=== PATIENT | male | born 1990 | race Caucasian/White ===

== ENCOUNTER → 2017-04-11 | Outpatient (CLI) | payer BC ==
[2017-04-11 11:55] LABS: BASO % 0.3 % (0.0-1.0); EOS # 0.3 K/mm3 (0.0-0.50); EOS % 2.6 % (0.0-3.0); LARGE UNSTAINED CELL # 0.1 K/mm3 (0.0-0.4); LARGE UNSTAINED CELL % 0.8 % (0.0-4.0); LYMPH % 19.4 % (24.0-44.0); MEAN CORPUSCULAR HEMOGLOBIN 27.2 pg (27.0-33.0); MEAN CORPUSCULAR HGB CONC 33.6 g/dl (32.0-36.5); MEAN CORPUSCULAR VOLUME 80.9 fl (80.0-96.0); MONO # 0.5 K/mm3 (0.0-0.8); MONO % 5.6 % (0.0-5.0); NEUTROPHILS # 6.9 K/mm3 (1.8-7.7); NEUTROPHILS % 71.2 % (36.0-66.0); PLATELET COUNT, AUTOMATED 336 k/mm3 (150-450); RED CELL DISTRIBUTION WIDTH 14.5 % (11.5-14.5); WHITE BLOOD COUNT 9.7 K/mm3 (4.0-10.0)
[2017-04-11 12:05] LABS: ALBUMIN 3.8 GM/DL (3.2-5.2); ALBUMIN/GLOBULIN RATIO 0.97 (1.00-1.93); ALKALINE PHOSPHATASE 94 U/L (45-117); ALT/SGPT 26 U/L (12-78); ANION GAP 9 MEQ/L (8-16); AST/SGOT 16 U/L (15-37); BILIRUBIN,TOTAL 0.4 MG/DL (0.2-1.0); BLOOD UREA NITROGEN 12 MG/DL (7-18); CALCIUM LEVEL 9.2 MG/DL (8.5-10.1); CARBON DIOXIDE LEVEL 27 MEQ/L (21-32); CHLORIDE LEVEL 104 MEQ/L (98-107); CREATININE FOR GFR 0.83 MG/DL (0.70-1.30); GLOMERULAR FILTRATION RATE > 60.0 (>60); GLUCOSE, FASTING 91 MG/DL (70-105); POTASSIUM SERUM 4.6 MEQ/L (3.5-5.1); SODIUM LEVEL 140 MEQ/L (136-145); TOTAL PROTEIN 7.7 GM/DL (6.4-8.2)
== END ==
LOC: M WUC 09:36
PROVIDERS: ATTEND Physician Assistant
DX: R10.816 Epigastric abdominal tenderness (principal)

== ENCOUNTER → 2017-04-15 | Outpatient (CLI) | payer OTHER ==
--- NOTE | 2017-04-15 08:25 | REP ---
Clinical: Right upper quadrant and epigastric abdominal pain. Technique: Montejo scale ultrasound using curved array transducer. Findings: The liver demonstrates increased echotexture consistent with fatty infiltration. The liver and pancreas are otherwise normal in contour, size, and echogenicity without focal hepatic or pancreatic lesions identified. The gallbladder is normal without gallstones, wall thickening or pericholecystic fluid. No biliary ductal dilatation is appreciated, and the common bile duct measures 4.0 mm diameter. The right kidney is normal in reniform shape without hydronephrosis and measures 12.8 x 5.1 x 5.0 cm. No ascites. Visualized portions of the abdominal aorta normal. Impression: Hepatosteatosis. Otherwise normal right upper quadrant ultrasound. Signed by Gopal Merino MD 04/15/2017 08:17 A
== END ==
LOC: M RAD 07:33
PROVIDERS: ATTEND Physician Assistant
DX: R10.11 Right upper quadrant pain (principal); R10.816 Epigastric abdominal tenderness

== ENCOUNTER → 2018-10-08 | Outpatient (CLI) | payer OTHER ==
--- NOTE | 2018-10-08 15:55 | REP ---
MRI study of the left knee without contrast: History: Left knee osteoarthritis. Comparison left knee MRI study is from May 30, 2009. Technique: Axial, coronal and sagittal imaging planes were utilized. T1, proton density and T2-weighted scans were obtained in the usual fashion with and without fat saturation. MRI findings: There is a large joint effusion. A tiny Gutierrez's cyst is seen. There is some motion artifact. There are two large osteocartilaginous loose bodies in the lateral aspect of the suprapatellar bursa. These measure 18 and 17 mm in greatest diameter respectively. There is a third large osteocartilaginous loose body posterior to the posterior cruciate ligament. This measures 16 mm in diameter. There is an irregular even larger loose body at the anterior joint line measuring 30 x 19 x 15 mm. Yet another large loose body is seen superiorly and posteriorly behind the femur, 17 mm in diameter. There are three smaller osteocartilaginous loose bodies lined up in the lateral recess of the joint. Patellar and quadriceps tendons are intact. Anterior posterior cruciate ligaments appear to be intact. There is no evidence of medial or lateral collateral ligament disruption. There is moderate three compartment chondromalacia. There is subcortical edema in the lateral femoral condyle associated with the chondromalacia in the lateral compartment. No definite labral tear is seen. Exam is otherwise unremarkable. Impression: Multiple osteocartilaginous loose bodies most of which are large. These are consistent with synovial osteochondromatosis. Fairly large joint effusion. Tiny Gutierrez's cyst. Three compartment osteoarthritic chondromalacia. Electronically Signed by Alexandru Lilly MD 10/08/2018 05:02 P
== END ==
LOC: M PLARAD 10:23
PROVIDERS: ATTEND Orthopaedic Surgery
DX: M17.12 Unilateral primary osteoarthritis, left knee (principal); D48.0 Neoplasm of uncertain behavior of bone and articular cartilage; M25.462 Effusion, left knee; M71.22 Synovial cyst of popliteal space [Baker], left knee; M94.262 Chondromalacia, left knee

== ENCOUNTER 2019-05-21 20:09 | Emergency (ER) | payer OTHER ==
[~2019-05-21] VITALS: Ht 180.3 cm; Wt 172.7 kg
[2019-05-21 20:21] VITALS: BP 160/70
--- NOTE | 2019-05-22 08:16 | REP ---
Clinical: Trauma. Technique: AP, lateral, bilateral oblique views of the right ankle. Findings: There is a nondisplaced oblique fracture of the distal fibula and transverse fracture through the medial malleolus. Diffuse soft tissue swelling. Impression: Bimalleolar fractures. Electronically Signed by Gopal Merino MD 05/22/2019 08:09 A
== END 2019-05-21 21:51 | disposition home or self-care (01) ==
LOC: M ED 20:09
DX: S82.844A Nondisplaced bimalleolar fracture of right lower leg, initial encounter for closed fracture (principal); W18.49XA Other slipping, tripping and stumbling without falling, initial encounter; Y92.9 Unspecified place or not applicable; Y93.9 Activity, unspecified

== ENCOUNTER 2019-05-25 21:05 | Day surgery (SDC) | payer OTHER ==
[~2019-05-25] VITALS: Ht 180.3 cm; Wt 167.8 kg
[2019-05-25] MEDS: LR 1,000 ML IV SCH (16:30)
[2019-05-25] MEDS: fentaNYL 100 MCG/2 ML INJECTION (J3010) IV PRN ×4 (16:30→16:45)
[2019-05-25] MEDS: PERCOCET 5MG/325MG TAB PO PRN ×3 (16:36→21:42)
[2019-05-25] MEDS: MEPERIDINE INJ 25 MG/ML VIAL (J2175) IV PRN ×2 (16:50→16:55)
--- NOTE | 2019-05-25 19:50 | REP ---
C-ARM VIEWS RIGHT ANKLE: Five C-ARM views of the right ankle are performed. There is placement of metallic plate and multiple screws in the distal fibula. Structures are well aligned. 31 seconds of fluoroscopy time was utilized. Electronically Signed by Nando Montejo MD 05/26/2019 10:08 A
[~2019-05-25 21:05] MED LIST: ACETAMINOPHEN 1000MG 100ML IV BTL (OFIRMEV) (J0131 PER 10MG) As Ordered ONE; EPINEPHrine INJ 1 MG/ML 1ML VIAL ONE; LIDOCAINE 2% INJ 100 MG/5 ML SDV (FOR ANES.) As Ordered ONE; LIDOCAINE 2% MDV *ALTO* 20 ML VIAL ONE; LR 1,000 ML IV SCH; METOCLOPRAMIDE INJ 10MG/2ML VIAL (J2765) IV PRN; MIDAZOLAM INJ 2 MG/2 ML VIAL (J2250) As Ordered ONE; MIDAZOLAM INJ 2 MG/2 ML VIAL (J2250) IV SCH; ONDANSETRON 4MG/2ML VIAL (J2405) As Ordered ONE; ONDANSETRON 4MG/2ML VIAL (J2405) IV PRN; PERCOCET 5MG/325MG TAB PO PRN; ROCURONIUM BROMIDE 50 MG/5 ML VIAL As Ordered ONE; ROPIvacaine 0.5% 30 ML INJECTION (J2795 PER 1MG) ONE; SUGAMMADEX SODIUM 500 MG/5 ML VIAL (BRIDION) As Ordered ONE; ceFAZolin 1GM INJ (J0690 PER 500MG) As Ordered ONE; ceFAZolin SOD 2 GM in IV 1 EA IV ONE; dexameTHASONE 10 MG/1 ML VIAL PRES.FREE (J1100) ONE; dexameTHASONE 4 MG/ML 1ML VIAL (J1100) As Ordered ONE; fentaNYL 100 MCG/2 ML INJECTION (J3010) As Ordered ONE; fentaNYL 100 MCG/2 ML INJECTION (J3010) IV SCH; fentaNYL 250 MCG/5 ML INJECTION (J3010) As Ordered ONE; propofoL 200 MG/20 ML VIAL As Ordered ONE
[2019-05-25 21:10] VITALS: BP 145/93
[2019-05-25 21:40] VITALS: BP 141/94
[2019-05-25 22:20] VITALS: BP 147/85
[2019-05-25 23:20] VITALS: BP 150/85
[2019-05-26 00:20] VITALS: BP 150/86
[2019-05-26] MEDS: LR 1,000 ML IV SCH ×2 (00:30→08:30)
[2019-05-26] MEDS: fentaNYL 100 MCG/2 ML INJECTION (J3010) IV PRN (00:38)
[2019-05-26 01:20] VITALS: BP 151/86
[2019-05-26 06:00] VITALS: BP 148/97
[2019-05-26] MEDS ORDERED: PERC5TAB12 PO ×2 (06:18→06:23)
[2019-05-26] MEDS ORDERED: ASPI-1 PO (06:18)
--- NOTE | 2019-05-26 06:59 | RO ---
DATE OF PROCEDURE: 05/25/2019 PREOPERATIVE DIAGNOSIS: Right ankle fracture. POSTOPERATIVE DIAGNOSIS: Right ankle fracture. PLANNED PROCEDURE: Right ankle open reduction internal fixation. PROCEDURE: Right ankle open reduction internal fixation. SURGEON: Franco Markham MD ORTHO ASSISTANT: Dr. Chu TYPE OF ANESTHETIC: General anesthetic plus block. OPERATIVE PREAMBLE: This 28-year-old man tripped and fell at home. He sustained a displaced bimalleolar ankle fracture. We talked about pros, cons, risks, benefits of nonoperative care versus open reduction internal fixation. He wished to go ahead with surgery. I rediscussed the specific surgical risks in holding including but not limited to infection, pain, stiffness, bleeding, neurovascular injury, delayed mal or nonunion, hardware prominence, anesthetic complications and . Wished to proceed and I marked the right lower extremity. I removed the cast, swelling was reasonable to proceed with surgery. OPERATIVE REPORT: The patient is brought to the operating theater. There, placed supine on the operating room table. A bump was placed under the right hip. Bone foam leg elevator was used. All bony prominences were padded. General anesthesia was induced. 2 grams of IV Ancef was administered. Preoperative time out was performed to confirm the site and the patient. The limb was prepped and draped in the usual sterile fashion. I began by making a 6-inch incision centered over the lateral aspect of the distal fibula and carried dissection down through skin and subcutaneous tissue to. I achieved meticulous hemostasis. I identified the level of the fracture. This was a short oblique fracture. I clamped the fracture using AO pointed reduction forceps. I confirmed the reduction on AP and lateral radiographs. Reduction was anatomic. Proximally there was a small area of bony comminution. It extended proximally and posterolaterally. I clamped across this to confirm the length. I performed direct visualization of the fracture reduction as well as AP lateral radiographs. Next, I placed a lag screw obliquely across the fracture from superior proximally to inferior distally. I used a 3.5 mm drill to overdrill the proximal cortex then top hat to place a 2.5 mm drill across the distal cortex. This measured 28 so I placed a 28 mm long 3.5 mm fully-threaded cortical screw in a lag screw fashion. I then selected an eight hole one-third tubular plate. I precontoured this. I placed this on the lateral aspect of the bone. I confirmed proper position using fluoroscopy. I inserted the four proximal 3.5 mm fully-threaded cortical screws as well as two 4.0 mm fully threaded cancellus screws in the distal two S holes of the plate. Reduction was anatomic. I then turned my attention to the medial side. I made a 3-inch incision centered over the mid aspect of the medial malleolus. I carried this dissection down through skin and subcutaneous tissue. I achieved meticulous hemostasis. I ligated one crossing vessel of the saphenous vein, but otherwise this was protected and retracted anteriorly. I then identified a very small medial malleolus fragment. This could have even been chronic given the small size and relative fibrous union that has already somewhat taken place. I elevated this fracture. I used curettes and rongeurs to freshen up both sides of the fracture. There was a very small fragment, approximately 1.5 cm in length by approximately 1.5 cm in diameter. I reduced this as best as I could as it did appear more chronic in nature. I then placed a #2 FiberWire suture across this to hold it in place. I took final radiographs AP, lateral and mortise. The mortise appeared normal. The fracture appeared anatomically reduced. Fibula was out to length. Hardware was in proper position. Cotton and external rotation stress tests were performed and no obvious syndesmosis injury or widening on the radiographs on direct visualization. I thoroughly irrigated the wounds with normal saline. Subcutaneous tissue was closed with interrupted #2-0 Vicryl sutures. Skin was closed with elijah. Skin was cleaned with wet and dry dressing followed by application of Adaptic 4 x 8 gauze and ABD dressing and sterile cast padding. I placed a below knee three-sided plaster of Yudelka splint with the foot in neutral. This was overwrapped with 6-inch Marcelino bandages. Tourniquet was used during the length of the case inflated to 250 mmHg after I started the case and deflated prior to skin closure. Meticulous hemostasis was achieved. Tourniquet time was 56 minutes. Once the splint had hardned, the patient woken up from general anesthetic, transferred off the operating table and taken to the postanesthetic care unit in stable condition. All sponge, needle, instrument counts were correct. Estimated blood loss 100 mL. There are no complications. PLAN: The patient is to be discharged home according to day surgery criteria if they are comfortable and the breathing parameters are within normal limits. They will be non-weightbearing for 6 weeks. Follow-up in the clinic in 2 weeks time to discontinue the elijah. A prescription has been sent in electronically to the pharmacy.
--- NOTE | 2019-05-26 09:08 | IPN ---
DATE: 05/26/2019 CHIEF COMPLAINT: Postoperative day one right ankle open reduction internal fixation. HISTORY OF PRESENT ILLNESS: This 28-year-old man is seen today in the [facility] on . Her is postoperative day #1 right ankle fracture surgery. He feels like he was having difficulty mobilizing yesterday and they were quite concerned about getting him in the vehicle as he does have a body mass index (BMI) of over 50. Otherwise, his pain is well-controlled and his breathing was normal overnight. PHYSICAL EXAMINATION: Well-appearing, 28-year-old man. He is resting comfortably. Leg was propped up, but not very elevated. He can wiggle his toes. Normal sensation of the feet, a little bit of decreased sensation at the tips of the toes. The toes are warm and well perfused. Splint is in situ. It is appropriately positioned of. ASSESSMENT/PLAN: 28-year-old man who can be discharged home according to normal day surgery criteria whenever he feels safe to be non weightbearing. He can rest the foot down on the ground, but should not walk on it. He needs physical therapy assessment for crutches and crutch training. Hopefully, he can be discharged home within 23 hours after surgery as most young people with lower extremity fracture surgery are; however, if he is slow to mobilize he might need to be changed over to inpatient status.
[2019-05-26 10:00] VITALS: BP 138/84
[2019-05-26] MEDS: PERCOCET 5MG/325MG TAB PO PRN (11:23)
== END 2019-05-26 11:40 | disposition home or self-care (01) ==
LOC: M SDC 21:05 → M MS5PR 21:06 → M SDC 05-26 11:40
PROVIDERS: ATTEND Orthopaedic Surgery Sports Medicine
DX: S82.841A Displaced bimalleolar fracture of right lower leg, initial encounter for closed fracture (principal); W01.0XXA Fall on same level from slipping, tripping and stumbling without subsequent striking against object, initial encounter; E66.9 Obesity, unspecified; G47.33 Obstructive sleep apnea (adult) (pediatric); F41.9 Anxiety disorder, unspecified; D64.9 Anemia, unspecified; F40.10 Social phobia, unspecified; Y93.9 Activity, unspecified; Y92.9 Unspecified place or not applicable; Y99.9 Unspecified external cause status
CPT/HCPCS: 27814; 76000; 97116; C1713; J0131; J0690; J1100; J2175; J2250; J2405; J2795; J3010

== ENCOUNTER 2019-06-14 21:37 | Emergency (ER) | payer OTHER ==
[~2019-06-14] VITALS: Ht 180.3 cm; Wt 168.2 kg
[~2019-06-14 21:37] MED LIST changes: -ACETAMINOPHEN 1000MG 100ML IV BTL (OFIRMEV) (J0131 PER 10MG) As Ordered ONE; +ASPI-1 PO; -EPINEPHrine INJ 1 MG/ML 1ML VIAL ONE; -LIDOCAINE 2% INJ 100 MG/5 ML SDV (FOR ANES.) As Ordered ONE; -LIDOCAINE 2% MDV *ALTO* 20 ML VIAL ONE; -LR 1,000 ML IV SCH; -METOCLOPRAMIDE INJ 10MG/2ML VIAL (J2765) IV PRN; -MIDAZOLAM INJ 2 MG/2 ML VIAL (J2250) As Ordered ONE; -MIDAZOLAM INJ 2 MG/2 ML VIAL (J2250) IV SCH; -ONDANSETRON 4MG/2ML VIAL (J2405) As Ordered ONE; -ONDANSETRON 4MG/2ML VIAL (J2405) IV PRN; +PERC5TAB12 PO; -PERCOCET 5MG/325MG TAB PO PRN; -ROCURONIUM BROMIDE 50 MG/5 ML VIAL As Ordered ONE; -ROPIvacaine 0.5% 30 ML INJECTION (J2795 PER 1MG) ONE; -SUGAMMADEX SODIUM 500 MG/5 ML VIAL (BRIDION) As Ordered ONE; -ceFAZolin 1GM INJ (J0690 PER 500MG) As Ordered ONE; -ceFAZolin SOD 2 GM in IV 1 EA IV ONE; -dexameTHASONE 10 MG/1 ML VIAL PRES.FREE (J1100) ONE; -dexameTHASONE 4 MG/ML 1ML VIAL (J1100) As Ordered ONE; -fentaNYL 100 MCG/2 ML INJECTION (J3010) As Ordered ONE; -fentaNYL 100 MCG/2 ML INJECTION (J3010) IV SCH; -fentaNYL 250 MCG/5 ML INJECTION (J3010) As Ordered ONE; -propofoL 200 MG/20 ML VIAL As Ordered ONE
[2019-06-14 22:10] LABS: BASO % 0.4 % (0.0-1.0); EOS # 0.4 10^3/uL (0.0-0.50); HEMATOCRIT 45.6 % (42.0-52.0); HEMOGLOBIN 15.1 g/dl (13.5-17.5); LYMPH # 2.9 10^3/uL (1.5-6.5); LYMPH % 27.1 % (24.0-44.0); MEAN CORPUSCULAR HGB CONC 33.1 g/dl (32.0-36.5); MEAN CORPUSCULAR VOLUME 84.4 fl (80.0-96.0); MONO # 0.7 10^3/uL (0.0-0.8); MONO % 6.4 % (0.0-5.0); NEUTROPHILS # 6.7 10^3/uL (1.8-7.7); NEUTROPHILS % 61.8 % (36.0-66.0); PLATELET COUNT, AUTOMATED 394 10^3/uL (150-450); WHITE BLOOD COUNT 10.8 10^3/uL (4.0-10.0)
[2019-06-14 22:34] LABS: ALT/SGPT 31 U/L (12-78); BILIRUBIN,DIRECT 0.1 MG/DL (0.0-0.2); BILIRUBIN,TOTAL 0.4 MG/DL (0.2-1.0); BLOOD UREA NITROGEN 14 MG/DL (7-18); CALCIUM LEVEL 9.7 MG/DL (8.5-10.1); CARBON DIOXIDE LEVEL 28 MEQ/L (21-32); CHLORIDE LEVEL 106 MEQ/L (98-107); CREATININE FOR GFR 0.81 MG/DL (0.70-1.30); GLOMERULAR FILTRATION RATE > 60.0 (>60); GLUCOSE, FASTING 113 MG/DL (70-100); LIPASE 74 U/L (73-393); POTASSIUM SERUM 3.6 MEQ/L (3.5-5.1); SODIUM LEVEL 140 MEQ/L (136-145); TOTAL PROTEIN 7.8 GM/DL (6.4-8.2)
[2019-06-14 23:15] LABS: BILIRUBIN, URINE MANUAL NEGATIVE (NEGATIVE); GLUCOSE, URINE (UA) MANUAL NEGATIVE (NEGATIVE); KETONE, URINE MANUAL NEGATIVE (NEGATIVE); UROBILINOGEN, URINE MANUAL NORMAL (NORMAL)
[2019-06-14 23:21] LABS: RBC, URINE TNTC /hpf (0-3); SQUAMOUS EPITHELIAL CELL URINE SMALL AMOUNT /hpf (SMALL AMT)
[2019-06-14 23:22] LABS: AMORPHOUS SEDIMENT, URINE SMALL AMOUNT (NEGATIVE); BACTERIA, URINE NONE SEEN; HYALINE CAST, URINE NONE SEEN /lpf (0-1)
[2019-06-15] MEDS ORDERED: NS 1,000 ML IV ONE
--- NOTE | 2019-06-15 00:51 | REPVR ---
EXAM: CT Abdomen and Pelvis Without Contrast EXAM DATE/TIME: 06/14/2019 11:50 PM CLINICAL HISTORY: 28 years old, male; Left flank pain, hematuria TECHNIQUE: Imaging protocol: Computed tomography images of the abdomen and pelvis without contrast. Radiation optimization: All CT scans at this facility use at least one of these dose optimization techniques: automated exposure control; mA and/or kV adjustment per patient size (includes targeted exams where dose is matched to clinical indication); or iterative reconstruction. COMPARISON: Abdomen, limited US 04/15/2017 7:46:35 AM FINDINGS: Lungs: The imaged lung bases are clear. Heart: No cardiomegaly. No pericardial effusion. Liver: No liver lesion is seen. The contour of the liver is smooth. The liver is enlarged and measures 18.3 cm in craniocaudal dimension at the level of the right midclavicular line. The superior most portion of the right hepatic lobe was not fully imaged. Gallbladder and bile ducts: No calcified gallstones are seen. No gallbladder wall thickening, pericholecystic fluid, or pericholecystic inflammatory changes are identified. No dilation of the intrahepatic or extrahepatic bile ducts is noted. Pancreas: Unremarkable. No ductal dilation. Spleen: No splenic lesion is noted. The spleen is enlarged and measures 14.8 cm. Adrenals: Normal. No mass. Kidneys and ureters: The kidneys are unremarkable. No renal lesion is identified. No calculi are seen in the kidneys or ureters. There is no hydronephrosis or hydroureter. Stomach and bowel: There is colonic diverticulosis involving the ascending colon without evidence for diverticulitis. There is no evidence for a bowel obstruction, colitis, pneumatosis intestinalis, intussusception, volvulus, or perforated viscus. Appendix: No evidence for appendicitis. Intraperitoneal space: Unremarkable. No free air. No fluid collection. Vasculature: No abdominal aortic aneurysm. Lymph nodes: Normal. No enlarged lymph nodes. Bladder: Unremarkable. No calculi or masses are noted in the bladder. There is no bladder wall thickening. Reproductive: The prostate gland and seminal vesicles are unremarkable. Bones/joints: The imaged bony structures are intact. There is no suspicious osteolytic or osteoblastic lesion. There is an exaggerated kyphosis at the thoracolumbar junction. A mild levoscoliosis of the lumbar spine is noted. There are degenerative changes in the lumbar spine. There is partial ankylosis of the right sacroiliac joint. Soft tissues: There is a large fat containing umbilical hernia. There is fatty atrophy of the paraspinal muscles in the lumbosacral region. IMPRESSION: 1. No acute findings in the abdomen or pelvis. No stones in the kidneys, ureters, or urinary bladder. No hydronephrosis or hydroureter. 2. Large fat containing umbilical hernia. 3. Hepatosplenomegaly. 4. Colonic diverticulosis without evidence for diverticulitis. Electronically signed by: Sarath Gr On 06/15/2019 00:51:00 AM
[2019-06-15 01:22] VITALS: BP 138/86
== END 2019-06-15 01:24 | disposition home or self-care (01) ==
LOC: M ED 21:37
DX: R31.0 Gross hematuria (principal); R10.9 Unspecified abdominal pain; N39.0 Urinary tract infection, site not specified; Z79.899 Other long term (current) drug therapy; Z79.82 Long term (current) use of aspirin

== ENCOUNTER → 2019-08-04 | Outpatient (REF) | payer OTHER ==
[2019-08-04 19:12] LABS: APPEARANCE, URINE CLEAR (CLEAR); BACTERIA, URINE AUTO NEGATIVE (NEGATIVE); BILIRUBIN, URINE AUTO NEGATIVE (NEGATIVE); BLOOD, URINE BLOOD NEGATIVE (NEGATIVE); COLOR, URINE STRAW (YELLOW); GLUCOSE, URINE (UA) AUTO NEGATIVE (NEGATIVE); KETONE, URINE AUTO TRACE mg/dL (NEGATIVE); LEUKOCYTE ESTERASE, URINE AUTO NEGATIVE (NEGATIVE); MUCUS, URINE SMALL (NEGATIVE); NITRITE, URINE AUTO NEGATIVE (NEGATIVE); PROTEIN, URINE AUTO NEGATIVE (NEGATIVE); RBC, URINE AUTO 0 /HPF (0-3); SPECIFIC GRAVITY URINE AUTO 1.008 (1.002-1.035); SQUAMOUS EPITHELIAL CELL UR AU 0 /HPF (0-6); UROBILINOGEN, URINE AUTO 0.2 mg/dL (0.0-2.0); WBC, URINE AUTO 0 /HPF (0-3)
== END ==
LOC: M SFHCADAM 18:54
PROVIDERS: ATTEND Physician Assistant
DX: R35.8 Other polyuria (principal)

== ENCOUNTER → 2019-08-26 | Outpatient (REF) | payer OTHER ==
[2019-08-26 16:18] LABS: BASO % 0.4 % (0.0-1.0); EOS # 0.3 10^3/uL (0.0-0.5); EOS % 3.8 % (0.0-3.0); HEMATOCRIT 41.9 % (42.0-52.0); HEMOGLOBIN 14.3 g/dl (13.5-17.5); LYMPH # 1.8 10^3/uL (1.5-5.0); LYMPH % 24.3 % (24.0-44.0); MEAN CORPUSCULAR HEMOGLOBIN 28.2 pg (27.0-33.0); MEAN CORPUSCULAR HGB CONC 34.1 g/dl (32.0-36.5); MEAN CORPUSCULAR VOLUME 82.6 fl (80.0-96.0); MONO # 0.5 10^3/uL (0.0-0.8); MONO % 6.1 % (0.0-5.0); NEUTROPHILS # 4.8 10^3/uL (1.5-8.5); PLATELET COUNT, AUTOMATED 322 10^3/uL (150-450); RED BLOOD COUNT 5.07 10^6/uL (4.30-6.10); WHITE BLOOD COUNT 7.4 10^3/uL (4.0-10.0)
[2019-08-26 16:47] LABS: ALBUMIN 4.1 GM/DL (3.2-5.2); ALT/SGPT 27 U/L (12-78); AMYLASE 18 U/L (25-115); BILIRUBIN,TOTAL 0.6 MG/DL (0.2-1.0); BLOOD UREA NITROGEN 9 MG/DL (7-18); CALCIUM LEVEL 9.1 MG/DL (8.5-10.1); CARBON DIOXIDE LEVEL 26 MEQ/L (21-32); CHLORIDE LEVEL 104 MEQ/L (98-107); CHOLESTEROL LEVEL 131 MG/DL (<200); CHOLESTEROL RISK RATIO 2.787 (<5); CREATININE FOR GFR 0.64 MG/DL (0.70-1.30); GLOMERULAR FILTRATION RATE > 60.0 (>60); GLUCOSE, FASTING 78 MG/DL (70-100); HDL CHOLESTEROL 47 MG/DL (>40); LDL CHOLESTEROL 70 MG/DL (<100); LIPASE 65 U/L (73-393); NON-HDL-C 84 MG/DL; POTASSIUM SERUM 3.9 MEQ/L (3.5-5.1); SODIUM LEVEL 139 MEQ/L (136-145); TOTAL PROTEIN 7.7 GM/DL (6.4-8.2); TRIGLYCERIDES LEVEL 72 MG/DL (<150)
[2019-08-26 17:00] LABS: HEMOGLOBIN A1c 5.2 %
== END ==
LOC: M SFHCADAM 14:58
PROVIDERS: ATTEND Physician Assistant
DX: Z23 Encounter for immunization (principal); R35.8 Other polyuria; E66.01 Morbid (severe) obesity due to excess calories; G47.33 Obstructive sleep apnea (adult) (pediatric); D50.9 Iron deficiency anemia, unspecified; R19.7 Diarrhea, unspecified

== ENCOUNTER → 2019-08-27 | Outpatient (REF) | payer OTHER | LOC: M LAB REF 09:34 | PROVIDERS: ATTEND Physician Assistant | DX: R19.7 Diarrhea, unspecified (principal) ==

== ENCOUNTER → 2019-09-05 | Outpatient (REF) | payer OTHER ==
[2019-09-05 18:45] LABS: APPEARANCE, URINE CLEAR (CLEAR); BACTERIA, URINE AUTO NEGATIVE (NEGATIVE); BILIRUBIN, URINE AUTO NEGATIVE (NEGATIVE); BLOOD, URINE BLOOD NEGATIVE (NEGATIVE); COLOR, URINE YELLOW (YELLOW); GLUCOSE, URINE (UA) AUTO NEGATIVE (NEGATIVE); KETONE, URINE AUTO NEGATIVE (NEGATIVE); LEUKOCYTE ESTERASE, URINE AUTO NEGATIVE (NEGATIVE); NITRITE, URINE AUTO NEGATIVE (NEGATIVE); PROTEIN, URINE AUTO NEGATIVE (NEGATIVE); RBC, URINE AUTO 0 /HPF (0-3); SPECIFIC GRAVITY URINE AUTO 1.019 (1.002-1.035); SQUAMOUS EPITHELIAL CELL UR AU 1 /HPF (0-6); UROBILINOGEN, URINE AUTO 0.2 mg/dL (0.0-2.0); WBC, URINE AUTO 0 /HPF (0-3)
== END ==
LOC: M SMT 17:02
PROVIDERS: ATTEND Urology
DX: Q64.9 Congenital malformation of urinary system, unspecified (principal)

== ENCOUNTER → 2019-09-12 | Outpatient (CLI) | payer OTHER ==
[2019-09-12 13:17] LABS: FOLLICLE STIMULATING HORMONE 15.1 mIU/mL (1.4-18.1); LUTEINIZING HORMONE 8.9 mIU/mL (1.5-9.3)
== END ==
LOC: M WUC 09:35
PROVIDERS: ATTEND Urology
DX: N50.0 Atrophy of testis (principal)

== ENCOUNTER → 2019-10-13 | Outpatient (CLI) | payer OTHER ==
--- NOTE | 2019-10-13 09:32 | REP ---
RIGHT UPPER QUADRANT ULTRASOUND: Real-time sonographic evaluation of the right upper quadrant was performed. Gallbladder demonstrates no evidence of intraluminal sludge or calculi, wall thickening, or pericholecystic fluid. There is no intrahepatic or extrahepatic biliary dilatation, common bile duct, measuring 4 mm. Liver demonstrates diffuse increased echotexture suggesting some degree of fatty infiltration. The liver is enlarged with a length of approximately 20.1 cm in the mid clavicular line. Visualized pancreas is grossly unremarkable with the pancreas not optimally seen due to overlying bowel gas. Right kidney demonstrates no hydronephrosis with normal size 12.4 cm in length. No ascites is seen. IMPRESSION: Mild hepatomegaly with echotexture suggesting diffuse fatty infiltration. Otherwise negative right upper quadrant ultrasound. Electronically Signed by Nando Montejo MD 10/13/2019 12:28 P
== END ==
LOC: M RAD 07:40
PROVIDERS: ATTEND Physician Assistant
DX: R10.13 Epigastric pain (principal); R16.0 Hepatomegaly, not elsewhere classified

== ENCOUNTER → 2019-11-21 | Outpatient (CLI) | payer OTHER ==
[2019-11-21 17:34] LABS: BASO % 0.5 % (0.0-1.0); EOS # 0.2 10^3/uL (0.0-0.5); EOS % 3.7 % (0.0-3.0); HEMATOCRIT 43.6 % (42.0-52.0); HEMOGLOBIN 13.6 g/dl (13.5-17.5); LYMPH # 1.9 10^3/uL (1.5-5.0); LYMPH % 31.7 % (24.0-44.0); MEAN CORPUSCULAR HGB CONC 31.2 g/dl (32.0-36.5); MEAN CORPUSCULAR VOLUME 86.7 fl (80.0-96.0); MONO # 0.4 10^3/uL (0.0-0.8); MONO % 7.3 % (0.0-5.0); NEUTROPHILS # 3.4 10^3/uL (1.5-8.5); NEUTROPHILS % 56.6 % (36.0-66.0); PLATELET COUNT, AUTOMATED 317 10^3/uL (150-450); RED BLOOD COUNT 5.03 10^6/uL (4.30-6.10)
[2019-11-21 18:10] LABS: ALBUMIN 3.9 GM/DL (3.2-5.2); ALT/SGPT 19 U/L (12-78); BILIRUBIN,DIRECT < 0.1 MG/DL (0.0-0.2); BILIRUBIN,TOTAL 0.4 MG/DL (0.2-1.0); TOTAL PROTEIN 7.6 GM/DL (6.4-8.2)
[2019-11-21 18:22] LABS: H PYLORI QUALITATIVE IgG NEGATIVE (NEGATIVE)
== END ==
LOC: M WUC 11:06
PROVIDERS: ATTEND Internal Medicine Gastroenterology
DX: R10.13 Epigastric pain (principal)

== ENCOUNTER → 2019-12-19 | Outpatient (REF) | payer OTHER | LOC: M LAB REF 12:59 | PROVIDERS: ATTEND Internal Medicine Gastroenterology | DX: R19.7 Diarrhea, unspecified (principal) ==

== ENCOUNTER → 2021-09-19 | Outpatient (REF) | payer OTHER ==
[2021-09-20 16:15] LABS: HEMATOCRIT 42.7 % (42.0-52.0); HEMOGLOBIN 13.8 g/dl (13.5-17.5); MEAN CORPUSCULAR HEMOGLOBIN 27.5 pg (27.0-33.0); MEAN CORPUSCULAR HGB CONC 32.3 g/dl (32.0-36.5); MEAN CORPUSCULAR VOLUME 85.1 fl (80.0-96.0); PLATELET COUNT, AUTOMATED 325 10^3/uL (150-450); RED BLOOD COUNT 5.02 10^6/uL (4.30-6.10)
[2021-09-20 16:37] LABS: ALBUMIN 3.9 GM/DL (3.2-5.2); ALT/SGPT 34 U/L (12-78); BILIRUBIN,TOTAL 0.4 MG/DL (0.2-1.0); BLOOD UREA NITROGEN 18 MG/DL (7-18); CALCIUM LEVEL 9.3 MG/DL (8.5-10.1); CARBON DIOXIDE LEVEL 27 MEQ/L (21-32); CHLORIDE LEVEL 107 MEQ/L (98-107); CHOLESTEROL LEVEL 150 MG/DL (<200); CHOLESTEROL RISK RATIO 2.884 (<5); CREATININE FOR GFR 0.64 MG/DL (0.70-1.30); GLOMERULAR FILTRATION RATE > 60.0 (>60); GLUCOSE, FASTING 88 MG/DL (70-100); HDL CHOLESTEROL 52 MG/DL (>40); LDL CHOLESTEROL 77 MG/DL (<100); NON-HDL-C 98 MG/DL; POTASSIUM SERUM 4.7 MEQ/L (3.5-5.1); SODIUM LEVEL 141 MEQ/L (136-145); TOTAL PROTEIN 7.6 GM/DL (6.4-8.2); TRIGLYCERIDES LEVEL 104 MG/DL (<150)
[2021-09-20 16:51] LABS: HEMOGLOBIN A1c 5.5 %
== END ==
LOC: M SFHCADAM 15:54
PROVIDERS: ATTEND Physician Assistant
DX: I10 Essential (primary) hypertension (principal); Z13.220 Encounter for screening for lipoid disorders; Z13.1 Encounter for screening for diabetes mellitus

== ENCOUNTER → 2023-12-17 | Outpatient (REF) | payer OTHER | LOC: M SFHCADAM 12:17 | PROVIDERS: ATTEND Physician Assistant | DX: Z53.9 Procedure and treatment not carried out, unspecified reason (principal) ==

== ENCOUNTER → 2023-12-17 | Outpatient (CLI) | payer OTHER ==
[2023-12-17 17:23] LABS: BASO % 0.4 % (0.0-1.0); EOS # 0.5 10^3/uL (0.0-0.5); EOS % 6.5 % (0.0-3.0); HEMATOCRIT 43.2 % (42.0-52.0); HEMOGLOBIN 14.3 g/dl (13.5-17.5); LYMPH # 1.8 10^3/uL (1.5-5.0); LYMPH % 23.2 % (24.0-44.0); MEAN CORPUSCULAR HGB CONC 33.1 g/dl (32.0-36.5); MEAN CORPUSCULAR VOLUME 84.7 fl (80.0-96.0); MONO # 0.6 10^3/uL (0.0-0.8); MONO % 8.2 % (2.0-8.0); NEUTROPHILS # 4.7 10^3/uL (1.5-8.5); NEUTROPHILS % 61.6 % (36.0-66.0); PLATELET COUNT, AUTOMATED 327 10^3/uL (150-450); WHITE BLOOD COUNT 7.6 10^3/uL (4.0-10.0)
[2023-12-17 17:29] LABS: HEMOGLOBIN A1c 5.5 % (4.0-6.0)
[2023-12-17 17:52] LABS: FREE T4 1.16 NG/DL (0.89-1.76); THYROID STIMULATING HORMONE 2.552 uIU/ML (0.55-4.78)
[2023-12-17 17:54] LABS: ALBUMIN 4.2 G/DL (3.2-5.2); ALKALINE PHOSPHATASE 101 U/L (46-116); ALT/SGPT 30 U/L (7.0-40); AST/SGOT 26 U/L (<34); BILIRUBIN,TOTAL 0.5 MG/DL (0.3-1.2); BLOOD UREA NITROGEN 13 MG/DL (9-23); CALCIUM LEVEL 8.9 MG/DL (8.5-10.1); CARBON DIOXIDE LEVEL 28 MMOL/L (20-31); CHLORIDE LEVEL 105 MMOL/L (98-107); CHOLESTEROL LEVEL 145 MG/DL (<200); CREATININE FOR GFR 0.66 MG/DL (0.70-1.30); GLOMERULAR FILTRATION RATE > 60.0 (>60); GLUCOSE, FASTING 96 MG/DL (60-100); LDL CHOLESTEROL 73.6 MG/DL (<100); POTASSIUM SERUM 3.8 MMOL/L (3.5-5.1); SODIUM LEVEL 140 MMOL/L (136-145); TOTAL PROTEIN 7.6 G/DL (5.7-8.2); TRIGLYCERIDES LEVEL 107 MG/DL (<150)
[2023-12-17 18:51] LABS: CREATININE, URINE 83.2 MG/DL; MAU/CREAT RATIO 7.2 MCG/MG (0.0-30.0)
== END ==
LOC: M WUC 12:39
PROVIDERS: ATTEND Physician Assistant
DX: I10 Essential (primary) hypertension (principal); Z28.21 Immunization not carried out because of patient refusal; G47.33 Obstructive sleep apnea (adult) (pediatric); Z99.89 Dependence on other enabling machines and devices

== ENCOUNTER → 2025-02-02 | Outpatient (REF) | payer OTHER ==
[2025-02-02 19:27] LABS: HEMATOCRIT 43.6 % (42.0-52.0); HEMOGLOBIN 14.1 g/dl (13.5-17.5); MEAN CORPUSCULAR HEMOGLOBIN 27.9 pg (27.0-33.0); MEAN CORPUSCULAR HGB CONC 32.3 g/dl (32.0-36.5); MEAN CORPUSCULAR VOLUME 86.2 fl (80.0-96.0); PLATELET COUNT, AUTOMATED 323 10^3/uL (150-450); RED BLOOD COUNT 5.06 10^6/uL (4.30-6.10); WHITE BLOOD COUNT 6.6 10^3/uL (4.0-10.0)
[2025-02-02 19:50] LABS: FERRITIN 60.1 NG/ML (10.5-307.3); THYROID STIMULATING HORMONE 2.014 uIU/ML (0.55-4.78)
[2025-02-02 19:51] LABS: FREE T4 1.29 NG/DL (0.89-1.76)
[2025-02-02 19:52] LABS: ALKALINE PHOSPHATASE 96 U/L (40-129); ALT/SGPT 30 U/L (7.0-40); AST/SGOT 26 U/L (<34); BILIRUBIN,TOTAL 0.4 MG/DL (0.3-1.2); BLOOD UREA NITROGEN 14 MG/DL (9-23); CARBON DIOXIDE LEVEL 26 MMOL/L (20-31); CHLORIDE LEVEL 103 MMOL/L (98-107); CHOLESTEROL LEVEL 127 MG/DL (<200); CHOLESTEROL RISK RATIO 2.48 (<5); CREATININE FOR GFR 0.61 MG/DL (0.70-1.30); GLOMERULAR FILTRATION RATE > 90.0 (>60); GLUCOSE, FASTING 92 MG/DL (60-100); HDL CHOLESTEROL 51.1 MG/DL (>40); LDL CHOLESTEROL 55.9 MG/DL (<100); NON-HDL-C 75.9 MG/DL; POTASSIUM SERUM 3.8 MMOL/L (3.5-5.1); SODIUM LEVEL 139 MMOL/L (136-145); TOTAL PROTEIN 7.4 G/DL (5.7-8.2); TRIGLYCERIDES LEVEL 100 MG/DL (<150)
[2025-02-02 21:47] LABS: HEMOGLOBIN A1c 5.7 % (4.0-6.0)
== END ==
LOC: M SFHCADAM 11:53
PROVIDERS: ATTEND Physician Assistant
DX: I10 Essential (primary) hypertension (principal); D50.9 Iron deficiency anemia, unspecified; K76.0 Fatty (change of) liver, not elsewhere classified; Z13.1 Encounter for screening for diabetes mellitus